=== PATIENT | male | born 1970 | race Caucasian/White ===

== ENCOUNTER → 2020-01-24 | Outpatient (CLI) | payer OTHER ==
--- NOTE | 2020-01-24 15:41 | XR ---
EXAMINATION TYPE: XR knee limited LT DATE OF EXAM: 01/24/2020 COMPARISON: None HISTORY: Chronic pain TECHNIQUE: 2 view left knee FINDINGS: Joint spaces are preserved. No significant effusion is evident. No acute fracture or disloc ation is evident. Follow-up exams can be performed 7-10 days from acute trauma for continued pain. IMPRESSION: 1. Normal 2 view left knee
== END | disposition home or self-care (01) ==
LOC: RADXRMAIN 14:15
PROVIDERS: ATTEND Family Medicine
DX: M25.562 Pain in left knee (principal)